=== PATIENT | female | born 2000 | race Caucasian/White ===

== ENCOUNTER 2021-05-25 17:01 | Emergency (ER) | payer OTHER ==
[~2021-05-25] VITALS: Ht 170.2 cm; Wt 77.1 kg
[2021-05-25 17:09] VITALS: BP 134/76
--- NOTE | 2021-05-25 17:09 | NUR ---
20 Y/O FEMALE C/O SORE THROAT XTODAY SINCE 2AM. REPORTS DIFFICULTY SWALLOWING. 9/10 TIGHTNESS PAIN. TOOK AMOXICILLIN TODAY. MEDHX: ELIES CORY
--- NOTE | 2021-05-25 17:18 | NUR ---
Bora garcia in [facility] - 05/25/21 at 1719 by [email or web address] JACOB SWEENEY AT BEDSIDE EXAMINING PT
--- NOTE | 2021-05-25 17:19 | NUR ---
JACOB Bee at bedside evaluating patient.
[2021-05-25] MEDS ORDERED: KETOROLAC 15 MG/ML VIAL IVP ONE (17:20)
[2021-05-25] MEDS ORDERED: DEXAMETHASONE 10 MG/ML VIAL IVP ONE (17:20)
[2021-05-25] MEDS ORDERED: NACL 0.9% 1,000 ML IV SCH (17:20)
[2021-05-25] MEDS ORDERED: IBUP-2213 PO (18:34)
[2021-05-25] MEDS ORDERED: PENICILLIN G BENZATHINE L-A 1.2 MU/2 ML SYR IM ONE (18:35)
[2021-05-25 19:12] VITALS: BP 134/76
--- NOTE | 2021-05-25 19:13 | NUR ---
Patient discharged with v/s stable. Written and verbal after care instructions given. Patient alert, oriented and verbalized understanding of instructions. Ambulatory with steady gait. All questions addressed prior to discharge. ID band removed. Patient advised to follow up with PMD. Rx of ibuprofen given. Opportunity to ask questions provided and answered.
== END 2021-05-25 19:13 | disposition home or self-care (01) ==
LOC: MED 17:01
DX: J02.0 Streptococcal pharyngitis (principal); Z79.899 Other long term (current) drug therapy
CPT/HCPCS: 87081; 96361; 96372; 96374; 96375; 99284; J0561; J1100; J1885; J7030

== ENCOUNTER 2021-09-04 09:34 | Emergency (ER) | payer OTHER ==
[~2021-09-04] VITALS: Ht 154.9 cm; Wt 76.2 kg
[~2021-09-04 09:34] MED LIST: IBUP-2213 PO
[2021-09-04 09:42] VITALS: BP 122/78
--- NOTE | 2021-09-04 09:45 | NUR ---
21YO FEMALE PT C/O TIGHT 10 SORE THROAT PAIN XYESTERDAY. PT STATES SHES CANT SWALLOW DUE TO THROAT PAIN. PT THROAT PRESENTS PINK WITH MILD SWELLING. NO SWELLING IN TONGUE. IN NO COUGH AT THIS TIME . PT DENIES SOB , CHEST PAIN OR N/V/D. PT STATES TAKING MOTRIN YESTERDAY , HAD NO RELIEF. PT DENIES BEING IN CONTACT WITH ANYONE SICK OR SIMILIAR SYMPTOMS. PT AAOX4, NO VISIBLE DISTRESS, RESPIRATIONS EVEN AND UNLABORED. PT MAINLY MACEDONIAN SPEAKING. NKA NHX
[2021-09-04] MEDS ORDERED: DEXAMETHASONE 10 MG/ML VIAL PO ONE (09:50)
[2021-09-04] MEDS ORDERED: IBUP-1842 PO (10:04)
--- NOTE | 2021-09-04 10:13 | NUR ---
PT SWABBED FOR COVID(ALEXIS). SPECIMEN WALKED AND HANDED TO LAB
--- NOTE | 2021-09-04 10:48 | NUR ---
Patient discharged with v/s stable. Written and verbal after care instructions FOR SORE THROAT given and explained. Patient alert, oriented and verbalized understanding of instructions. Ambulatory with steady gait. All questions addressed prior to discharge. ID band removed. Patient advised to follow up with PMD. Rx of IBUPROFEN given. Opportunity to ask questions provided and answered.
--- NOTE | 2021-09-04 10:49 | NUR ---
The patient's care was reviewed and supervised by Alexa Lopez RN.
== END 2021-09-04 10:48 | disposition home or self-care (01) ==
LOC: MED 09:34
DX: J02.9 Acute pharyngitis, unspecified (principal); Z20.822 Contact with and (suspected) exposure to COVID-19; Z79.899 Other long term (current) drug therapy
CPT/HCPCS: 87426; 99283; J1100

== ENCOUNTER 2023-03-20 15:30 | Emergency (ER) | payer OTHER ==
[~2023-03-20] VITALS: Ht 157.5 cm; Wt 77.6 kg
[~2023-03-20 15:30] MED LIST changes: +IBUP-1842 PO
[2023-03-20 15:52] VITALS: BP 138/91; PULSE 128; RESP 16; TEMP 98.7; O2SAT 99
[2023-03-20] MEDS ORDERED: ACETAMINOPHEN EXTRA STRENGTH 500 MG TAB PO ONE (19:40)
[2023-03-20] MEDS ORDERED: ONDANSETRON 4 MG ODT PO ONE (19:40)
[2023-03-20 20:09] LABS: BASOPHILS # (AUTO) 0.1 K/uL (0.00-0.22); BASOPHILS % (AUTO) 0.6 % (0.0-2.0); EOSINOPHILS # (AUTO) 0.2 K/uL (0-0.4); EOSINOPHILS % (AUTO) 0.8 % (0.0-4.0); HEMATOCRIT 43.7 % (36-48); HEMOGLOBIN 14.4 g/dL (12.0-16.0); LYMPHOCYTES # (AUTO) 4.5 K/uL (2.5-16.5); LYMPHOCYTES % (AUTO) 22.3 % (20.5-51.1); MEAN CORPUSCULAR HEMOGLOBIN 30 pg (27-31); MEAN CORPUSCULAR HGB CONC 33 g/dL (33-37); MONOCYTES # (AUTO) 1.1 K/uL (0.8-1.0); MONOCYTES % (AUTO) 5.7 % (1.7-9.3); NEUTROPHILS # (AUTO) 14.1 K/uL (1.8-7.7); NEUTROPHILS % (AUTO) 70.6 % (42.2-75.2); PLATELET COUNT (AUTO) 315 K/uL (140-450); RED BLOOD CELL COUNT(AUTO) 4.86 MIL/uL (4.20-5.40); RED CELL DISTRIBUTION WIDTH 13.7 % (11.6-13.7)
[2023-03-20 20:24] LABS: ANION GAP 17.9 (8-16); CALCIUM 9.9 mg/dL (8.5-10.1); CARBON DIOXIDE 24.6 mmol/L (21-32); CREATININE 0.7 mg/dL (0.6-1.3); POTASSIUM 3.5 mmol/L (3.5-5.1)
[2023-03-20 20:28] LABS: ALBUMIN 4.2 g/dL (3.4-5.0); TOTAL BILIRUBIN 0.2 mg/dL (0.0-1.0); TOTAL PROTEIN, SERUM 9.4 g/dL (6.4-8.2)
[2023-03-20 21:14] LABS: APPEARANCE,URINE SL CLOUDY (CLEAR); BILIRUBIN,URINE NEGATIVE (NEGATIVE); BLOOD, URINE 2+ (NEGATIVE); COLOR,URINE YELLOW (YELLOW); LEUKOCYTE ESTERASE ,URINE TRACE (NEGATIVE); NITRITE, URINE NEGATIVE (NEGATIVE); PROTEIN,URINE NEGATIVE (NEGATIVE); UGLUCOSE NEGATIVE (NEGATIVE); UROBILINOGEN,URINE 0.2 EU/dL (0.2 - 1)
[2023-03-20 21:16] LABS: WBC,URINE 0-5 /HPF (0-5)
[2023-03-20 21:17] LABS: BACTERIA,URINE 0-2 /HPF (None Seen); MUCUS,URINE None Seen /LPF (None Seen); SQUAMOUS EPITHELIAL CELL,UR 0-3 (FEW) /LPF (0-3 (FEW))
[2023-03-20 22:25] LABS: PROTHROMBIN TIME 10.5 secs (10.8-13.4)
[2023-03-20 23:24] VITALS: BP 124/82; O2SAT 100
== END 2023-03-20 23:33 | disposition short-term general hospital (02) ==
LOC: MED 15:30
DX: D68.9 Coagulation defect, unspecified (principal); I60.8 Other nontraumatic subarachnoid hemorrhage; Z79.899 Other long term (current) drug therapy
CPT/HCPCS: 36415; 70450; 80048; 80076; 81001; 81025; 83690; 85025; 85610; 99291; Q0162

== ENCOUNTER 2023-06-02 14:37 | Emergency (ER) | payer OTHER ==
[~2023-06-02] VITALS: Ht 157.5 cm; Wt 79.4 kg
[2023-06-02 15:11] VITALS: BP 135/92; PULSE 127; RESP 16; TEMP 99.3; O2SAT 99
[2023-06-02 15:30] VITALS: O2SAT 99
[2023-06-02] MEDS: KETOROLAC 30 MG/ML VIAL IM ONE (16:26)
[2023-06-02] MEDS: DEXAMETHASONE 4 MG/ML VIAL PO ONE (16:27)
[2023-06-02] MEDS: ACETAMINOPHEN 325 MG TAB PO ONE (16:28)
[2023-06-02] MEDS ORDERED: AMOX1TAB8 PO (17:33)
[2023-06-02 17:50] VITALS: BP 120/74; PULSE 88; RESP 16; TEMP 98; O2SAT 99
== END 2023-06-02 17:51 | disposition home or self-care (01) ==
LOC: MED 14:37
DX: J03.90 Acute tonsillitis, unspecified (principal); Z20.822 Contact with and (suspected) exposure to COVID-19; Z79.899 Other long term (current) drug therapy
CPT/HCPCS: 81025; 87081; 87426; 96372; 99283; J1100; J1885